=== PATIENT | male | born 1970 | race Caucasian/White ===

== ENCOUNTER 2016-12-09 11:01 | Outpatient (REF) ==
--- NOTE | 2016-12-09 11:20 | DI ---
EXAM: PA and lateral views of the chest HISTORY: Screening COMPARISON: Chest x-ray 02/07/2015 and 02/06/2014 FINDINGS: The cardiomediastinal silhouette is normal. There is no pneumothorax or pleural effusion . There is no consolidation, nodule or mass. The osseous structures are stable. IMPRESSION: No acute cardiopulmonary process
== END 2016-12-09 11:02 | disposition home or self-care (01) ==
LOC: RAD 11:01
DX: Z02.89 Encounter for other administrative examinations (principal)